=== PATIENT | female | born 1990 | race Native Hawaiian/Other Pacific Islander ===

== ENCOUNTER 2021-01-09 12:14 | Emergency (ER) | payer OTHER ==
[~2021-01-09] VITALS: Ht 188 cm; Wt 136.1 kg
[2021-01-09 13:14] LABS: PLATELET COUNT 379 K/uL (152-353)
[2021-01-09 13:22] LABS: POTASSIUM 3.9 mmol/L (3.6-5.2)
[2021-01-09 14:50] VITALS: BP 131/89; TEMP 98.1
== END 2021-01-09 14:50 | disposition home or self-care (01) ==
LOC: ED 12:14
PROVIDERS: Family Medicine
DX: F41.8 Other specified anxiety disorders (principal); N39.0 Urinary tract infection, site not specified
CPT/HCPCS: 80053; 80307; 81000; 85027; 87077; 87086; 87088; 87186; 96372; 99283; J0696

== ENCOUNTER 2022-12-13 21:37 | Emergency (ER) | payer OTHER ==
[~2022-12-13] VITALS: Ht 188 cm; Wt 147.4 kg
[2022-12-13 23:54] VITALS: BP 152/96; TEMP 97.7
== END 2022-12-13 23:54 | disposition home or self-care (01) ==
LOC: ED 21:37
DX: Z71.1 Person with feared health complaint in whom no diagnosis is made (principal)
CPT/HCPCS: 81000; 81025; 99284